=== PATIENT | female | born 1990 ===

== ENCOUNTER 2020-04-25 07:29 | Inpatient (IN) | payer MEDICAID ==
[2020-04-25] VITALS (23 sets, daily range): BP systolic 93–147; BP diastolic 59–96; PULSE 67–109; TEMP 98–98.8
[~2020-04-25] VITALS: Ht 154.9 cm; Wt 55.5 kg
--- NOTE | 2020-04-25 07:45 | NUR ---
Pt arrives on unit ambulatory with FOB for IOL. Changed into clean gown. EFM and toco applied. VSS. Interpretter used for admission assessment and education. Pt denies vaginal bleeding, LOF, and reports GFM. States ctx that began at 0400 that "are a little painful." IV started in LH. Labs drawn. LR infusing. Pt updated on POC. Bed locked in low position. Call light within reach. No questions or concerns at this time.
[2020-04-25 08:09] LABS: BASO % 0.3 % (0.0-2.0); EOS % 0.6 % (0-4.0); GRAN # 5.3 (1.4-6.5); GRAN % 73.8 % (42.2-75.2); HEMOGLOBIN 12.1 g/dl (12.5-16.0); LYMPH # 1.3 (1.2-3.4); LYMPH % 17.8 % (20.0-51.0); MEAN CELL VOLUME 89 fl (80.0-100.0); MEAN CORPUSCULAR HEMOGLOBIN 29 pg (27.0-31.0); MEAN CORPUSCULAR HGB CONC 33 g/dl (33.0-37.0); MEAN PLATELET VOLUME 10.7 fl (7.4-10.4); MONO # 0.5 (0.1-0.6); MONO % 6.7 % (1.7-9.3); PLATELET COUNT 209 K/mm3 (130-400); RED BLOOD COUNT 4.18 M/mm3 (4.10-5.30); REDCELL DISTRIBUTION WIDTH-CV 15.4 % (11.5-14.5)
[2020-04-25] MEDS ORDERED: PRENATAL MVI (08:10)
--- NOTE | 2020-04-25 08:15 | NUR ---
Bedside US performed by Dr. June. Confirms vertex position.
--- NOTE | 2020-04-25 10:53 | NUR ---
FOB calling out "baby is coming." Dr. June and this RN at bedside. head . 1054- of viable female infant in bed attended by Dr. June. Cord clamped x 2 and cut from umbilicus. Infant dried and placed on mother's abdomen. Care of to Christian Awan RN. Apgars 9. 1058- of placenta. Pitocin bolus infusing per protocol. Fundus firm at umbilicus. Bleeding WNL. Periurethral laceration not repaired. Pericare performed. Ice pack applied. Pt updated on POC. Bed locked in low position. Call light within reach. No questions or concerns at this time. 1125-Golf ball size clot noted with fundal massage. Light free flow. Pt placed on bed guillen to drain bladder. Unable to void at this time. Discussed with pt concern of full bladder and relation to moderate bleeding. Pt consented to have straigh catheterization performed. 300 cc of clear yellow urine obtained. Pericare performed. New pad applied.
[2020-04-26] VITALS: BP 118/72; PULSE 82; TEMP 98.5
[2020-04-26 02:59] VITALS: BP 93/67; PULSE 88; TEMP 98.6
[2020-04-26] MEDS ORDERED: IBU600 MG PO (06:54)
[2020-04-26 07:26] VITALS: BP 100/58; PULSE 68; TEMP 97.7
--- NOTE | 2020-04-26 09:26 | NUR ---
Initial visit attempt; Family resting, [employer] left card of congratulations and God's blessings for the of their daughter and information regarding the availability of spiritual care at our hospital.
--- NOTE | 2020-04-26 14:42 | NUR ---
[employer] consulted for the patient due to needing WIC resource. [place] speaking. Captain/Airline Pilot met with the patient and the FOB. SW provided information for WIC they were agreeable to contacting [place] to set it up. SW collaborated the above information with the patient's nurse.
== END 2020-04-26 14:58 | disposition home or self-care (01) | DRG 807 ==
LOC: LDR 07:29 → OB 07:29
PROVIDERS: ADMIT Obstetrics & Gynecology
PROC: 10E0XZZ Delivery of Products of Conception, External Approach (ICD-10-PCS; principal; 2020-04-25)
PROC: 10907ZC Drainage of Amniotic Fluid, Therapeutic from Products of Conception, Via Natural or Artificial Opening (ICD-10-PCS; 2020-04-25)
DX: O99.02 Anemia complicating childbirth (principal); Z37.0 Single live birth; D64.9 Anemia, unspecified; O71.82 Other specified trauma to perineum and vulva; Z3A.39 39 weeks gestation of pregnancy
CPT/HCPCS: J2590; J7120